=== PATIENT | male | born 1995 ===

== ENCOUNTER 2024-08-11 16:30 | Emergency (ER) | payer MEDICAID ==
[~2024-08-11] VITALS: Ht 180.3 cm; Wt 102.1 kg
[2024-08-11 17:40] VITALS: TEMP 97.9
[2024-08-11] MEDS: SODIUM CHLORIDE 0.9% 1,000 ML IV ONE (17:43)
[2024-08-11] MEDS: MORPHINE SULFATE 2 MG/ML SYRINGE IVP ONE (18:18)
[2024-08-11 18:20] LABS: BASOPHILS % (AUTO) 0.2 % (0.0-2.0); EOSINOPHILS % (AUTO) 0.2 % (1.0-6.0); HEMATOCRIT 39.8 % (41-53); HEMOGLOBIN 13.5 g/dL (13.5-17.5); LYMPHOCYTES # (AUTO) 0.7 K/uL (1.0-4.8); LYMPHOCYTES % (AUTO) 27.1 % (22.0-44.0); MEAN CORPUSCULAR HEMOGLOBIN 34.4 pg (26.0-34.0); MEAN CORPUSCULAR VOLUME 101 fL (80-100); MONOCYTES # (AUTO) 0.2 K/uL (0.1-1.0); MONOCYTES % (AUTO) 8.9 % (2.0-9.0); NEUTROPHILS # (AUTO) 1.7 K/uL (1.8-7.7); NEUTROPHILS % (AUTO) 63.6 % (40.0-70.0); RED BLOOD CELL COUNT(AUTO) 3.92 MIL/uL (4.50-5.90); RED CELL DISTRIBUTION WIDTH 16.2 % (11.5-14.5); WHITE BLOOD COUNT (AUTO) 2.6 K/uL (4.5-11.0)
[2024-08-11 18:30] LABS: ANION GAP 8 mmol/L (8-16); CALCIUM, TOTAL 9.4 mg/dL (8.8-10.5); CARBON DIOXIDE 31 mmol/L (22-29); CHLORIDE 94 mmol/L (98-107); CREATININE 0.86 mg/dL (0.60-1.30); GLOMERULAR FILTR. RATE CALC > 60 mL/min (>60); GLUCOSE,RANDOM 121 mg/dL (70-110); POTASSIUM 3.3 mmol/L (3.5-5.1); SODIUM SERUM 133 mmol/L (136-145); UREA NITROGEN, BLOOD 7 mg/dL (7-18)
[2024-08-11 19:02] LABS: PLATELET COUNT (AUTO) 66 K/uL (150-450); RBC MORPHOLOGY COMMENT ABNORMAL RBC MORPH
[2024-08-11 19:16] LABS: ALCOHOL, BLOOD (SERUM) < 3 mg/dL (0-10)
[2024-08-11 19:44] LABS: AMPHET/METH SCREEN,URINE NEGATIVE (NEGATIVE); BARBITURATE SCREEN, URINE NEGATIVE (NEGATIVE); BENZODIAZEPINES SCREEN,URINE NEGATIVE (NEGATIVE); CANNABINOID SCREEN,URINE POSITIVE (NEGATIVE); COCAINE SCREEN,URINE NEGATIVE (NEGATIVE); METHADONE SCREEN, URINE NEGATIVE (NEGATIVE); OPIATE SCREEN,URINE POSITIVE (NEGATIVE); PHENCYCLIDINE SCREEN,URINE NEGATIVE (NEGATIVE)
[2024-08-11 19:46] LABS: ALCOHOL, URINE DRUG SCREEN NEGATIVE (NEGATIVE)
[2024-08-11] MEDS: KETOROLAC TROMETHAMINE 30 MG/ML VIAL IVP ONE (19:49)
[2024-08-11 21:00] VITALS: BP 126/84; PULSE 84; RESP 18; O2SAT 99
== END 2024-08-11 21:14 | disposition home or self-care (01) ==
LOC: EMS 16:30
DX: R55 Syncope and collapse (principal)
CPT/HCPCS: 99291; 70450; 96374; 96361; 96375; 80048; 85025; 36415; 72125; 82962; 80307; G0480; J1885; J2270; J7030

== ENCOUNTER 2024-09-10 23:14 | Emergency (ER) | payer MEDICAID ==
[~2024-09-10] VITALS: Ht 180.3 cm; Wt 109.1 kg
[2024-09-10 23:46] VITALS: TEMP 98.4
[2024-09-10] MEDS ORDERED: GABA-1181 PO (23:54)
[2024-09-11] MEDS: ONDANSETRON HCL 4 MG/2 ML VIAL IVP ONE (00:44)
[2024-09-11 00:48] LABS: BASOPHILS % (AUTO) 0.2 % (0.0-2.0); EOSINOPHILS % (AUTO) 0 % (1.0-6.0); HEMOGLOBIN 13.6 g/dL (13.5-17.5); LYMPHOCYTES # (AUTO) 0.6 K/uL (1.0-4.8); LYMPHOCYTES % (AUTO) 25.2 % (22.0-44.0); MEAN CORPUSCULAR HEMOGLOBIN 35.5 pg (26.0-34.0); MEAN CORPUSCULAR VOLUME 104 fL (80-100); MONOCYTES # (AUTO) 0.3 K/uL (0.1-1.0); MONOCYTES % (AUTO) 11.4 % (2.0-9.0); NEUTROPHILS # (AUTO) 1.6 K/uL (1.8-7.7); NEUTROPHILS % (AUTO) 63.2 % (40.0-70.0); PLATELET COUNT (AUTO) 92 K/uL (150-450); RED BLOOD CELL COUNT(AUTO) 3.83 MIL/uL (4.50-5.90); RED CELL DISTRIBUTION WIDTH 15.7 % (11.5-14.5); WHITE BLOOD COUNT (AUTO) 2.6 K/uL (4.5-11.0)
[2024-09-11 00:58] LABS: ANION GAP 12 mmol/L (8-16); CALCIUM, TOTAL 9.3 mg/dL (8.8-10.5); CARBON DIOXIDE 35 mmol/L (22-29); CHLORIDE 87 mmol/L (98-107); CREATININE 0.96 mg/dL (0.60-1.30); GLOMERULAR FILTR. RATE CALC > 60 mL/min (>60); GLUCOSE,RANDOM 107 mg/dL (70-110); POTASSIUM 4.2 mmol/L (3.5-5.1); SODIUM SERUM 134 mmol/L (136-145); UREA NITROGEN, BLOOD 12 mg/dL (7-18)
[2024-09-11] MEDS: ChlordiazePOXIDE HCL 25 MG CAPSULE PO ONE ×2 (00:59→02:07)
[2024-09-11 01:06] LABS: ALCOHOL, BLOOD (SERUM) < 3 mg/dL (0-10)
[2024-09-11 01:07] VITALS: BP 138/83; PULSE 120; RESP 16; O2SAT 98
[2024-09-11] MEDS ORDERED: CHLO25CA6 PO (01:45)
[2024-09-11] MEDS ORDERED: ONDA-104 PO (01:46)
== END 2024-09-11 02:33 | disposition home or self-care (01) ==
LOC: EMS 23:15
DX: F10.939 Alcohol use, unspecified with withdrawal, unspecified (principal); D69.6 Thrombocytopenia, unspecified; R56.9 Unspecified convulsions; E87.8 Other disorders of electrolyte and fluid balance, not elsewhere classified; Z79.899 Other long term (current) drug therapy
CPT/HCPCS: 99283; 80048; 85025; 36415; 96374; 82962; G0480; J2405

== ENCOUNTER 2024-12-10 20:38 | Inpatient (IN) | payer MEDICAID ==
[~2024-12-10] VITALS: Ht 180.3 cm; Wt 94.3 kg
[~2024-12-10 20:38] MED LIST: MAGN400T57 PO; MULT-1203 PO
[2024-12-10 22:43] LABS: BASOPHILS % (AUTO) 0.8 % (0.0-2.0); EOSINOPHILS % (AUTO) 0.3 % (1.0-6.0); HEMATOCRIT 34.4 % (41-53); HEMOGLOBIN 11.9 g/dL (13.5-17.5); LYMPHOCYTES % (AUTO) 50.3 % (22.0-44.0); MEAN CORPUSCULAR HEMOGLOBIN 36.9 pg (26.0-34.0); MEAN CORPUSCULAR HGB CONC 34.4 G/dL (31.0-37.0); MEAN CORPUSCULAR VOLUME 107 fL (80-100); MONOCYTES # (AUTO) 0.5 K/uL (0.1-1.0); MONOCYTES % (AUTO) 8.4 % (2.0-9.0); NEUTROPHILS # (AUTO) 2.4 K/uL (1.8-7.7); NEUTROPHILS % (AUTO) 40.2 % (40.0-70.0); PLATELET COUNT (AUTO) 265 K/uL (150-450); RED BLOOD CELL COUNT(AUTO) 3.22 MIL/uL (4.50-5.90); WHITE BLOOD COUNT (AUTO) 5.9 K/uL (4.5-11.0)
[2024-12-10 22:56] LABS: ANION GAP 14 mmol/L (8-16); CALCIUM, TOTAL 8.5 mg/dL (8.8-10.5); CARBON DIOXIDE 30 mmol/L (22-29); CHLORIDE 101 mmol/L (98-107); CREATININE 0.79 mg/dL (0.60-1.30); GLOMERULAR FILTR. RATE CALC > 60 mL/min (>60); GLUCOSE,RANDOM 112 mg/dL (70-110); RBC MORPHOLOGY COMMENT ABNORMAL RBC MORPH; SODIUM SERUM 145 mmol/L (136-145); UREA NITROGEN, BLOOD 6 mg/dL (7-18)
[2024-12-10 22:57] LABS: BILIRUBIN,DIRECT 0.5 mg/dL (0.00-0.20); BILIRUBIN,TOTAL 0.7 mg/dL (0.1-1.0); POTASSIUM 2.8 mmol/L (3.5-5.1); TOTAL PROTEIN, SERUM 6.9 g/dL (6.4-8.2)
[2024-12-10 22:58] LABS: CREATINE KINASE, TOTAL ONLY 30 U/L (39-308); TROPONIN I-HIGH SENSITIVITY 16 ng/L (<76)
[2024-12-10] MEDS ORDERED: POTASSIUM CHL 10 MEQ/WATER 50 ML IV SCH (23:00)
[2024-12-10] MEDS: MORPHINE SULFATE 2 MG/ML SYRINGE IVP ONE (23:15)
[2024-12-10] MEDS: ONDANSETRON HCL 4 MG/2 ML VIAL IVP ONE (23:15)
[2024-12-10] MEDS: LORazepam 2 MG/ML VIAL IVP ONE (23:15)
[2024-12-10] MEDS: POTASSIUM CHLORIDE 20 MEQ ER TABLET PO ONE (23:22)
[2024-12-10] MEDS: SODIUM CHLORIDE 0.9% 1,000 ML IV ONE (23:22)
[2024-12-10] MEDS: POTASSIUM CHL 20 MEQ/0.9% NS 1,000 ML IV ONE (23:32)
[2024-12-10] MEDS: FAMOTIDINE 20 MG/2 ML VIAL IVP ONE (23:32)
[2024-12-11] MEDS: MAGNESIUM SULFATE 1 GM in DEXTROSE 5%-WATER 50 ML IV ONE (00:08)
[2024-12-11] MEDS: MORPHINE SULFATE 4 MG/ML SYRINGE IVP ONE (02:30)
[2024-12-11] MEDS: MORPHINE SULFATE 2 MG/ML SYRINGE IVP ONE ×2 (05:41→15:13)
[2024-12-11] MEDS ORDERED: MAGNESIUM SULFATE 4 GM/WATER 100 ML IV PRN (05:45)
[2024-12-11] MEDS ORDERED: POTASSIUM CHL 10 MEQ/WATER 50 ML IV PRN (05:45)
[2024-12-11] MEDS: MAGNESIUM SULFATE 2 GM, MVI, ADULT NO.1 WITH VIT K 10 ML, THIAMINE 100 MG, FOLIC ACID 1... IV ONE (05:45)
[2024-12-11] MEDS ORDERED: MAGNESIUM OXIDE 400 MG TABLET PO PRN (05:45)
[2024-12-11 06:01] LABS: APPEARANCE,URINE CLEAR (CLEAR); BILIRUBIN,URINE NEGATIVE (NEGATIVE); COLOR,URINE YELLOW (YELLOW); GLUCOSE, URINE (UA) NEGATIVE (NEGATIVE); KETONES,URINE TRACE mg/dL (NEGATIVE); LEUKOCYTE ESTERASE ,URINE NEGATIVE (NEGATIVE); NITRATE,URINE NEGATIVE (NEGATIVE); OCCULT BLOOD,URINE NEGATIVE (NEGATIVE); PH,URINE 6.5 (5.0-8.0); PH,URINE DRUG SCREEN 6.5 (5.0-8.0); PROTEIN,URINE 30-70 mg/dL (NEGATIVE); SPECIFIC GRAVITIY, URINE 1.015 (1.003-1.030); UROBILINOGEN,URINE <=1.0 mg/dL (<=1.0)
[2024-12-11 06:06] LABS: AMPHET/METH SCREEN,URINE NEGATIVE (NEGATIVE); BARBITURATE SCREEN, URINE NEGATIVE (NEGATIVE); BENZODIAZEPINES SCREEN,URINE NEGATIVE (NEGATIVE); CANNABINOID SCREEN,URINE NEGATIVE (NEGATIVE); COCAINE SCREEN,URINE NEGATIVE (NEGATIVE); METHADONE SCREEN, URINE NEGATIVE (NEGATIVE); OPIATE SCREEN,URINE POSITIVE (NEGATIVE); PHENCYCLIDINE SCREEN,URINE NEGATIVE (NEGATIVE)
[2024-12-11 06:12] LABS: ALCOHOL, URINE DRUG SCREEN POSITIVE (NEGATIVE)
[2024-12-11 08:53] VITALS: BP 155/79; PULSE 117; RESP 18; TEMP 98; O2SAT 98
[2024-12-11] MEDS: ChlordiazePOXIDE HCL 25 MG CAPSULE PO PRN (09:15)
[2024-12-11 10:00] VITALS: BP 150/86; PULSE 118; RESP 18; TEMP 98.1; O2SAT 97
[2024-12-11 11:00] VITALS: BP 142/98; PULSE 110; RESP 18; TEMP 97.9; O2SAT 98
[2024-12-11] MEDS: TraMADol HCL 50 MG TABLET PO PRN (11:58)
[2024-12-11 12:00] VITALS: BP 136/96; PULSE 106; RESP 18; TEMP 97.9; O2SAT 95
[2024-12-11 15:48] VITALS: BP 138/86; PULSE 112; RESP 18; TEMP 98; O2SAT 97
[2024-12-11 20:12] VITALS: BP 134/93; PULSE 103; RESP 18; TEMP 97.9; O2SAT 99
[2024-12-11] MEDS ORDERED: HYDROCODONE/ACETAMINOPHEN 5-325 MG TABLET PO PRN (20:45)
[2024-12-11] MEDS: LORazepam 2 MG/ML VIAL IVP PRN (20:47)
[2024-12-11] MEDS: HYDROCODONE/ACETAMINOPHEN 5-325 MG TABLET PO PRN (20:47)
[2024-12-11] MEDS ORDERED: SODIUM CHLORIDE 0.9% 1,000 ML ONE (20:50)
[2024-12-11] MEDS: MAGNESIUM SULFATE 2 GM/WATER 50 ML IV PRN (23:59)
[2024-12-12 00:41] VITALS: BP 127/92; PULSE 99; RESP 18; TEMP 98.6; O2SAT 99
[2024-12-12 02:54] VITALS: BP 124/84; PULSE 98; RESP 19; TEMP 98.6; O2SAT 98
[2024-12-12 04:49] VITALS: BP 120/69; PULSE 106; RESP 18; TEMP 98.2; O2SAT 97
[2024-12-12 04:51] VITALS: BP 120/69; PULSE 105; RESP 18; TEMP 98.2; O2SAT 97
[2024-12-12 06:45] LABS: BASOPHILS % (AUTO) 0.6 % (0.0-2.0); EOSINOPHILS % (AUTO) 0.7 % (1.0-6.0); HEMATOCRIT 26.8 % (41-53); HEMOGLOBIN 9.4 g/dL (13.5-17.5); LYMPHOCYTES # (AUTO) 1.8 K/uL (1.0-4.8); LYMPHOCYTES % (AUTO) 62.3 % (22.0-44.0); MEAN CORPUSCULAR HEMOGLOBIN 37.7 pg (26.0-34.0); MEAN CORPUSCULAR HGB CONC 35.1 G/dL (31.0-37.0); MEAN CORPUSCULAR VOLUME 107 fL (80-100); MONOCYTES # (AUTO) 0.2 K/uL (0.1-1.0); MONOCYTES % (AUTO) 8.1 % (2.0-9.0); NEUTROPHILS # (AUTO) 0.8 K/uL (1.8-7.7); NEUTROPHILS % (AUTO) 28.3 % (40.0-70.0); PLATELET COUNT (AUTO) 174 K/uL (150-450); RED CELL DISTRIBUTION WIDTH 14.7 % (11.5-14.5); WHITE BLOOD COUNT (AUTO) 2.8 K/uL (4.5-11.0)
[2024-12-12 06:51] LABS: ANION GAP 3 mmol/L (8-16); CALCIUM, TOTAL 7.6 mg/dL (8.8-10.5); CARBON DIOXIDE 33 mmol/L (22-29); CHLORIDE 101 mmol/L (98-107); CREATININE 0.58 mg/dL (0.60-1.30); GLOMERULAR FILTR. RATE CALC > 60 mL/min (>60); GLUCOSE,RANDOM 102 mg/dL (70-110); SODIUM SERUM 137 mmol/L (136-145); UREA NITROGEN, BLOOD 4 mg/dL (7-18)
[2024-12-12] MEDS ORDERED: ChlordiazePOXIDE HCL 25 MG CAPSULE PO PRN (07:00)
[2024-12-12 08:00] VITALS: BP 134/86; PULSE 109; RESP 18; TEMP 97.8; O2SAT 99
[2024-12-12 08:25] LABS: ALANINE AMINOTRANSFERASE 151 U/L (12-78); ALBUMIN 2.4 g/dL (3.4-5.0); ALKALINE PHOSPHATASE 252 U/L (46-116); ASPARTATE AMINOTRANSFERASE 216 U/L (15-37); BILIRUBIN,TOTAL 0.8 mg/dL (0.1-1.0); TOTAL PROTEIN, SERUM 5.4 g/dL (6.4-8.2)
[2024-12-12] MEDS: ChlordiazePOXIDE HCL 25 MG CAPSULE PO SCH (08:50)
[2024-12-12] MEDS: POTASSIUM CHLORIDE 20 MEQ ER TABLET PO PRN (08:51)
[2024-12-12 12:00] VITALS: BP 145/96; PULSE 99; RESP 18; TEMP 98.5; O2SAT 98
[2024-12-12] MEDS ORDERED: MULT-1203 PO (14:42)
[2024-12-12] MEDS ORDERED: THIA100T80 PO (14:42)
[2024-12-12] MEDS ORDERED: FOLI-130 PO (14:42)
[2024-12-12] MEDS ORDERED: CHLO25CA6 PO (14:42)
[2024-12-12] MEDS ORDERED: MAGN400T57 PO (14:42)
[2024-12-14] MEDS ORDERED: ChlordiazePOXIDE HCL 10 MG CAPSULE PO PRN (07:00)
[2024-12-14] MEDS ORDERED: ChlordiazePOXIDE HCL 10 MG CAPSULE PO SCH (09:00)
[2024-12-15] MEDS ORDERED: ChlordiazePOXIDE HCL 10 MG CAPSULE PO PRN (07:00)
== END 2024-12-12 16:45 | disposition home or self-care (01) | DRG 425 ==
LOC: EMS 20:38 → EDH 12-11 05:46 → 5S 12-11 08:40
PROVIDERS: ADMIT Internal Medicine; ATTEND Internal Medicine
DX: E87.6 Hypokalemia (principal); G62.1 Alcoholic polyneuropathy; F10.139 Alcohol abuse with withdrawal, unspecified; E83.42 Hypomagnesemia; R74.01 Elevation of levels of liver transaminase levels; Y90.9 Presence of alcohol in blood, level not specified; Z79.899 Other long term (current) drug therapy
CPT/HCPCS: 80048; 80053; 80076; 80307; 81003; 82040; 82550; 83735; 84132; 84484; 85025; 93005; 99291; G0480; J2060; J2270; J2405; J3411; J3475; J3480; J3490; J7030; J7060